=== PATIENT | female | born 1995 ===

== ENCOUNTER 2024-03-21 18:45 | Emergency (ER) | payer MEDICAID ==
[~2024-03-21] VITALS: Ht 157.5 cm; Wt 100.0 kg
[2024-03-21 19:46] VITALS: TEMP 97.3
[2024-03-21] MEDS: ACETAMINOPHEN 325 MG TABLET PO ONE (20:24)
[2024-03-21 21:00] VITALS: BP 129/69; PULSE 68; RESP 18
== END 2024-03-21 21:34 | disposition home or self-care (01) ==
LOC: EMS 18:45
DX: I73.00 Raynaud's syndrome without gangrene (principal); R20.0 Anesthesia of skin
CPT/HCPCS: 99283